=== PATIENT | male | born 1960 | race Caucasian/White ===

== ENCOUNTER 2018-04-13 14:41 | Emergency (ER) | payer OTHER ==
[~2018-04-13] VITALS: Ht 182.9 cm; Wt 92.2 kg
[2018-04-13 15:00] LABS: ABSOLUTE BASOPHILS 0.1 thou/uL (0.0-0.2); ABSOLUTE EOSINOPHILS 0.6 thou/uL (0.0-0.7); ABSOLUTE LYMPHOCYTES 2.5 thou/uL (0.8-5.3); ABSOLUTE MONOCYTES 0.8 thou/uL (0.0-1.2); ABSOLUTE NEUTROPHILS 5.6 thou/uL (1.6-8.1); BASOPHILS 0.9 %; EOSINOPHILS 5.8 %; HEMATOCRIT 44.7 % (42.0-52.0); HEMOGLOBIN 15.5 gm/dL (14.0-18.0); LYMPHOCYTES 26.4 %; MCHC 34.6 g/dL (28.0-37.0); MCV 89.5 fL (80.0-100.0); MONOCYTES 8.4 %; MPV 6.9 fl. (7.2-11.1); NUCLEATED RBCS 0 /100WBC; PLATELET COUNT* 363 thou/uL (150-400); POLYS 58.5 %; RBC 4.99 mil/uL (4.50-6.00); RDW-CV 13.4 % (10.5-14.5); WBC 9.5 thou/uL (4.0-11.0)
[2018-04-13 15:15] LABS: ANION GAP 5 mmol/L (7-16); APTT 32.3 Seconds (25.0-31.3); BUN 11 mg/dL (7-18); CALCIUM 8.9 mg/dL (8.5-10.1); CHLORIDE 105 mmol/L (98-107); CO2 29 mmol/L (21-32); CREATININE 0.9 mg/dL (0.6-1.3); GLUCOSE 91 mg/dL (70-99); PROTIME 10.7 Seconds (9.20-11.50); SODIUM 139 mmol/L (136-145)
[2018-04-13 15:34] LABS: ALBUMIN 3.8 g/dL (3.4-5.0); ALKALINE PHOSPHATASE 98 U/L (46-116); CK-MB MASS 1.5 ng/mL (<0.5-3.6); NT-PRO BRAIN NAT PEPTIDE 145 pg/mL (<300); SGOT 11 U/L (15-37); SGPT 18 U/L (30-65); TOTAL BILIRUBIN 0.3 mg/dL (<0.1-1.0); TOTAL PROTEIN 7.4 g/dL (6.4-8.2); TROPONIN-I LEVEL <0.06 ng/mL (<0.06)
[2018-04-13 15:37] LABS: ACETAMINOPHEN < 2 ug/mL (10-30); ALCOHOL < 10 mg/dL (<10); SALICYLATE < 2.8 mg/dL (2.8-20.0)
[2018-04-13 15:54] LABS: URINE BILIRUBIN NEGATIVE (Negative); URINE BLOOD NEGATIVE (Negative); URINE CLARITY CLEAR; URINE COLOR YELLOW; URINE GLUCOSE-RANDOM NEGATIVE (Negative); URINE KETONES NEGATIVE (Negative); URINE LEUKOCYTES-REFLEX NEGATIVE (Negative); URINE NITRITE-REFLEX NEGATIVE (Negative); URINE PROTEIN NEGATIVE (Negative); URINE SPECIFIC GRAVITY 1.015 (1.005-1.030); URINE UROBILINOGEN 0.2 E.U./dl (0.2-1.0)
[2018-04-13 16:16] LABS: AMP/METHAMP POSITIVE (Negative); BARBITURATES Negative (Negative); BENZODIAZEPINES Negative (Negative); COCAINE Negative (Negative); METHADONE Negative (Negative); OPIATES Negative (Negative); PCP Negative (Negative); THC POSITIVE (Negative)
[2018-04-13 16:42] VITALS: BP 199/131
--- NOTE | 2018-04-14 11:37 | EKG ---
[place] [address] ELECTROCARDIOGRAM REPORT Name: FALGUNI TINSLEY Room: [facility]#: [id number] Admission: 04/13/18 Attend Phys: Discharge: 04/13/18 Date of : 60 Report #: [id number] THIS REPORT FOR: //name// [facility] ED Test Date: 2018-04-13 Test Time: 14:46:50 Pat Name: FALGUNI TINSLEY Department: Room: Gender: M [employer]: : 1960 Requested By: Shashi Burdick Order Number: [id number] MD: Ten Blum Measurements Intervals [place] Rate: 87 P: 4 GA: 161 QRS: -29 QRSD: 94 T: 54 QT: 380 QTc: 457 Interpretive Statements Sinus rhythm Borderline left axis deviation RSR' in V1 or V2, right VCD or RVH No previous ECG available for comparison Electronically Signed On 04-14-2018 11:36:55 CDT by Ten Blum [email or web address] <ELECTRONICALLY SIGNED> By: Ten Blum MD, [facility] 04/14/18 1136 [id number] [id number] Ten Blum MD, [facility] /EPI
== END 2018-04-13 16:44 | disposition home or self-care (01) ==
LOC: M.ERS 14:41
PROVIDERS: Family Medicine
DX: R41.82 Altered mental status, unspecified (principal); F17.210 Nicotine dependence, cigarettes, uncomplicated